=== PATIENT | male | born 1965 | race Caucasian/White ===

== ENCOUNTER 2016-05-17 19:53 | Emergency (ER) | payer OTHER ==
--- NOTE | 2016-05-17 22:17 | DIAGNOSTIC IMAGING REPORT ---
PROCEDURE: ABDOMEN/PELVIS WITH CONTRAST CLINICAL INDICATION: DIARRHEA TECHNIQUE: 140 ml of Isovue 300 were injected intravenously and axial images were obtained of the abdomen and pelvis with sagittal and coronal reformations. COMPARISON: None. FINDINGS: ABDOMEN: Mild circumferential mural thickening of the distal esophagus. Minor bibasilar atelectatic changes. Normal sized heart. No hiatal hernia. Tiny right lobe hepatic cyst. The liver, gallbladder, adrenal glands, kidneys, pancreas and spleen are otherwise normal. The abdominal aorta is normal in its course and caliber. There are no suspicious calcifications, retroperitoneal adenopathy or masses. The stomach, and mesentery are normal. Intact anterior abdominal wall. There are occasional normal-caliber bowel loops which are fluid-filled and contain air fluid levels. No dilated bowel loop or transition point. There is liquid stool in the proximal colon. In the distal descending colon, and throughout the sigmoid colon, there are numerous diverticula. There is a very mild amount of inflammation around the distal descending colon and proximal sigmoid. No free extraluminal gas, adjacent fluid, or focal fluid collection. PELVIS: The appendix is not visible. There are occasional fluid filled normal-caliber pelvic small bowel loops. The prostate gland, seminal vesicles, urinary bladder, and pelvic vessels are normal. No adenopathy, free fluid, or pelvic mass. Tiny in direct fat containing left inguinal hernia. Intact osseous structures. IMPRESSION: 1. Findings of very mild or early distal descending and sigmoid colon diverticulitis. No evidence of complication. 2. Scattered air fluid levels in normal small bowel suggestive of ileus or gastroenteritis. 3. Circumferential mural thickening of the distal esophagus may be reflux esophagitis. Correlate clinically. 4. Findings called to the emergency room. All CT scans at this facility use dose modulation, iterative reconstruction, and/or weight-based dosing when appropriate to reduce radiation dose to as low as reasonably achievable.
--- NOTE | 2016-05-17 23:08 | ED ORDER SUMMARY ---
..... Patient: JOVANA KISER [facility]Sheet [facility] VisitID: [id number] [address] [place] [address] 51y, M Registration Date/Time: 05/17/2016 ORDER SHEET Weight: 88.4 kg (stated) Allergies: Penicillins GENERAL ORDERS: Chest 2V Urgent (20:26 05/17/2016 JCoates) (Ack 20:29 AMcQuoid ER Tech1) (20:42 MCampbell) CT Abd/Pel w Cont (No) (N/A) Urgent (20:26 05/17/2016 JCoates) (Ack 20:29 AMcQuoid ER Tech1) (21:52 MCampbell) CBC w Diff Urgent (20:05/17/2016 JCoates) (Ack 20:29 AMcQuoid ER Tech1) (20:52 JBullard R.N.) CMP Urgent (20:05/17/2016 JCoates) (Ack 20:29 AMcQuoid ER Tech1) (20:52 JBullard R.N.) UA-Culture if indicated Urgent (20:05/17/2016 JCoates) (Ack 20:29 AMcQuoid ER Tech1) (22:36 JBullard R.N.) MEDICATION ORDERS: Ciprofloxacin PO 500 mg (NOW) (22:32 05/17/2016 JCoates) (23:07 JBullard R.N.) Flagyl PO 500 mg (NOW) (22:32 05/17/2016 JCoates) (23:07 JBullard R.N.) IV FLUIDS: IV NS : initial bolus 1000 mL (1000 mL/hr), then 1000 mL/hr for X1 (NOW) (20:26 05/17/2016 JCoates) (20:53 JBullard R.N.) Dilaudid IV 1 mg (NOW) (20:05/17/2016 JCoates) (20:52 JBullard R.N.) Zofran IV 8 mg (NOW) (20:27 05/17/2016 JCoates) (Cancelled: Physician Order20:32 JCoates) IV Saline Lock (20:05/17/2016 JCoates) (20:30 Martin Almaraz) Zofran IV 8 mg (NOW) (21:33 05/17/2016 JCoates) (21:34 Martin Almaraz) ORDER SHEET NOTES: [Electronically signed by Jian Juarez R.N. (23:31 05/17/2016)] [Electronically signed by José Luis Puentes (23:32 05/17/2016)] [Electronically locked/signed by Jian Juarez R.N. (23:31 05/17/2016)]
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
--- NOTE | 2016-05-17 23:08 | ED ORDER SUMMARY ---
..... Patient: JOVNAA KISER OrderSheet [facility] VisitID: [id number] [address] [place] [address] 51y, M Registration Date/Time: 05/17/2016 ORDER SHEET Weight: 88.4 kg (stated) Allergies: Penicillins GENERAL ORDERS: Chest 2V Urgent (20:26 05/17/2016 JCoates) (Ack 20:29 AMcQuoid ER Tech1) (20:42 MCampbell) CT Abd/Pel w Cont (No) (N/A) Urgent (20:26 05/17/2016 JCoates) (Ack 20:29 AMcQuoid ER Tech1) (21:52 MCampbell) CBC w Diff Urgent (20:05/17/2016 JCoates) (Ack 20:29 AMcQuoid ER Tech1) (20:52 JBullard R.N.) CMP Urgent (20:05/17/2016 JCoates) (Ack 20:29 AMcQuoid ER Tech1) (20:52 JBullard R.N.) UA-Culture if indicated Urgent (20:05/17/2016 JCoates) (Ack 20:29 AMcQuoid ER Tech1) (22:36 JBullard R.N.) MEDICATION ORDERS: Ciprofloxacin PO 500 mg (NOW) (22:32 05/17/2016 JCoates) (23:07 JBullard R.N.) Flagyl PO 500 mg (NOW) (22:32 05/17/2016 JCoates) (23:07 JBullard R.N.) IV FLUIDS: IV NS : initial bolus 1000 mL (1000 mL/hr), then 1000 mL/hr for X1 (NOW) (20:26 05/17/2016 JCoates) (20:53 JBullard R.N.) Dilaudid IV 1 mg (NOW) (20:05/17/2016 JCoates) (20:52 JBullard R.N.) Zofran IV 8 mg (NOW) (20:27 05/17/2016 JCoates) (Cancelled: Physician Order20:32 JCoates) IV Saline Lock (20:05/17/2016 JCoates) (20:30 Martin Almaraz) Zofran IV 8 mg (NOW) (21:33 05/17/2016 JCoates) (21:34 Martin Almaraz) ORDER SHEET NOTES: [Electronically signed by Jian Juarez R.N. (23:31 05/17/2016)] [Electronically signed by José Luis Puentes (23:32 05/17/2016)] [Electronically locked/signed by Jian Juarez R.N. (23:31 05/17/2016)]
--- NOTE | 2016-05-17 23:08 | ED CLINICAL REPORT ---
Clinical Report - Physicians/Mid Levels [facility] [address] [place] [address] 05/17/2016 19:54 [id number] Time Seen: 20:02 May 17 2016. Arrived- By private vehicle. Historian- patient. HISTORY OF PRESENT ILLNESS Chief Complaint: ABDOMINAL PAIN and DIARRHEA. This started about 4 days ago; One week ago patient developed a cough, runny nose, sore throat and body aches. He's been coughing consistently since. 4 days ago he also developed loose stools and has had watery diarrhea since. He denies any recent antibiotic use or exposure to other people with similar symptoms. No fever but has had body aches and mild chills. No pain with urination or increased urine frequency. At its maximum, severity described as mild. When seen in the E.D., severity described as mild. It is described as "pain" and cramping. No radiation. It is described as located in the right abdomen and right lower quadrant. No nausea or vomiting. He has had loss of appetite and diarrhea. No recent travel. Similar symptoms previously: None. Recent medical care: The patient was seen recently at another facility in a clinic (Patient Seen at an Urgent Care Earlier Today but They Were Unable to Do Lab Work.). REVIEW OF SYSTEMS No constipation, black stools, difficulty with urination, pain with urination or bloody stools. No fever, headache, chest pain, difficulty breathing or joint pain. No skin rash. Last bowel movement: recently. The patient has had chills, a cough and weight loss. All systems otherwise negative, except as recorded above. PAST HISTORY See nurses notes. No history of heart disease, lung disease or diabetes mellitus. SOCIAL HISTORY Never smoker. Alcohol use. No drug use. PHYSICAL EXAM Appearance: Alert. Oriented X3. No acute distress. Eyes: Pupils equal, round and reactive to light. Eyes normal inspection. ENT: Ears normal. Nose normal. Pharynx normal. Neck: Normal inspection. Neck supple. No JVD or lymphadenopathy. CVS: Normal heart rate and rhythm. Heart sounds normal. Respiratory: No respiratory distress. Breath sounds normal. Abdomen: Soft. Mild tenderness in the right upper quadrant. No guarding or rebound tenderness. No organomegaly. No mass. Back: Normal inspection. No CVA tenderness. Skin: Skin warm and dry. Normal skin color. No rash. Normal skin turgor. Extremities: Extremities exhibit normal ROM. No lower extremity edema. Neuro: Oriented X 3. No motor deficit. No sensory deficit. LABS, X-RAYS, AND EKG Chest X-ray: Normal Chest X-Ray. Abdominal CT: Normal liver, spleen and pancreas. Appendix normal. There is evidence of diverticulitis (likely early). No inflammatory phlegmon or focal abscess. Possible ileus. Mild thickening of the distal esophagus. Abdominal CT performed with IV contrast. The study was discussed with the radiologist. Laboratory Tests: UA-Culture if indicated: (SADA: 05/17/2016 22:30) ( [facility] 05/17/2016 22:52) Final results Test Result Flag Units (Reference) URINE COLOR YELLOW URINE APPEARANCE CLEAR URINE GLUCOSE NEGATIVE (NEGATIVE) URINE BILIRUBIN NEGATIVE (NEGATIVE) URINE KETONE 2+ (NEGATIVE) URINE SPECIFIC GRAVITY 1.010 (1.010-1.030) URINE PH 5.5 (5.0-8.0) URINE PROTEIN NEGATIVE (NEGATIVE) URINE UROBILINOGEN 0.2 EU/dL (0.2-1.0) URINE NITRITE NEGATIVE (NEGATIVE) URINE BLOOD NEGATIVE (NEGATIVE) URINE LEUK ESTERASE NEGATIVE (NEGATIVE) URINE RBC 0-1 rbc/hpf (0-1) URINE WBC 1-3 wbc/hpf (0-1) URINE EPITHELIAL CELLS 1-3 EPI/hpf (0-5) URINE BACTERIA NONE SEEN (NONE SEEN) URINE COMMENT CULT NOT INDICATED URINE CULTURES ARE SET-UP BASED ON THE FOLLOWING CRITERIA:POSITIVE NITRITEPOSITIVE LEUKOCYTE ESTERASEGREATER THAN 10 WHITE BLOOD CELLSMODERATE (2+) OR GREATER BACTERIA CBC w Diff: (SADA: 05/17/2016 20:50) ( [facility] 05/17/2016 20:59) Final results Test Result Flag Units (Reference) WHITE BLOOD COUNT 3.8 L K/uL (4.5-11.5) RED BLOOD COUNT 4.66 M/uL (4.50-5.90) HEMOGLOBIN 14.7 gm/dL (13.5-17.5) HEMATOCRIT 42.7 % (41.0-53.0) MEAN CELL VOLUME 92 fL (80-100) MEAN CORPUSCULAR HGB 32 pg (26-34) MEAN CORPUSCULAR HGB CONC 34 g/dL (31-37) RED CELL DISTRIBUTION WIDTH 12.4 % (11.6-14.8) PLATELET COUNT 173 K/uL (150-400) NEUTROPHIL % 58.8 % (50-75) LYMPH % 32.9 % (25-40) MONO % 7.8 % (3-14) EOSINOPHIL % 0.2 % (0-4) BASOPHIL % 0.3 % (0-2) CMP: (SADA: 05/17/2016 20:50) ( MsgRcvd 05/17/2016 21:29) Final results Test Result Flag Units (Reference) GLUCOSE 86 mg/dL (70-110) BUN 10 mg/dL (7-18) CREATININE 1.0 mg/dL (0.6-1.3) Estimated GFR >60 mL/min Estimated GFR- >60 mL/min Note: Persistent reduction over 3 months in eGFR<60 mL/min/1.73 m2 defines CKD. Patients with eGFR values>=60 mL/min/1.73 m2 may also have CKD if evidence ofpersistent proteinuria. Additional information may be foundat www.kidney.org. SODIUM 138 mmol/L (136-145) POTASSIUM 4.2 mmol/L (3.5-5.1) CHLORIDE 102 mmol/L (98-107) CARBON DIOXIDE 27 mmol/L (21-32) CALCIUM 7.7 L mg/dL (8.5-10.1) TOTAL PROTEIN 6.7 g/dL (6.4-8.2) ALBUMIN 3.5 g/dL (3.3-5.0) BILIRUBIN, TOTAL 0.4 mg/dL (0.0-1.0) ALKALINE PHOSPHATASE 46 U/L (46-116) AST (SGOT) 26 U/L (15-37) ALT (SGPT) 25 U/L (12-78) . PROGRESS AND PROCEDURES Course of Care: 20:27 05/17/16. Patient stable. Cough and now diarrhea. he has mild abdominal pain, unfortunately it's in the right lower quadrant at McBurney's point. Discussed waiting for labs versus CT now. Patient would like to get the CT now so that there is no delay in treatment if CBC is elevated. We'll Order this and make him comfortable. Disposition: Discharged in good and improved condition. CLINICAL IMPRESSION Acute diverticulitis (early). Acute upper respiratory infection. INSTRUCTIONS Rest at home for two days until better. Drink plenty of fluids. No dietary restrictions. No alcohol until released (while taking antibiotics). Warnings: Further evaluation is necessary. It is very important to follow up with a physician. SEDATIVE MEDICATION: You were given sedative medication during your visit. Do not drive or operate dangerous machinery today. GENERAL WARNINGS: Return or contact your physician immediately if your condition worsens or changes unexpectedly, if not improving as expected, or if other problems arise. SPECIFICALLY, return if you develop fever, vomiting, the inability to keep fluids down or fainting. Prescription Medications: Dickson 5 mg / 325 mg tablets: take 1 to 2 orally every 6 hours as needed for pain. Dispense five (5). No refill. Substitution is permissible. Cipro 500 mg: take 1 tab orally every 12 hours for 7 days. No refills. Substitution is permissible. Flagyl 500 mg: Take 1 tablet orally every 12 hours for 7 days. No refill. Substitution is permissible OTC Medications: Mucinex (available over the counter): 600 mg tablet: take 1 tablet orally every 12 hours for 5 days. Dispense ten (10). No refill. Follow-up: Follow up with your doctor in three days even if well. Understanding of the discharge instructions verbalized by patient. (Electronically signed by José Luis Puentes, 05/17/2016 23:32)
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
--- NOTE | 2016-05-17 23:32 | ED MAR SUMMARY ---
..... Medication Administration Record [facility] [address] [place] [address] Patient: JOVANA KISER Visit ID: [id number] 51y, M Weight: 88.4 kg Height/Length: 75 in BMI: 24.4 ALLERGIES: Penicillins Given 20:52 05/17/2016 Jian Juarez R.N. Medication Administered: DILAUDID [IVP] (HYDROMORPHONE HCL PF), Dose: 1 mg IVP, Site: #1 left forearm. Medication Ordered: Dilaudid IV 1 mg (NOW). Start 20:53 05/17/2016 Jian Juarez R.N. Medication Administered: IV NS (SALINE), Dose: IV Fluids, Bolus: 1000 mL wide open, Dispensed: 1000 mL bag, Site: #1 left forearm. Medication Ordered: IV NS : initial bolus 1000 mL (1000 mL/hr), then 1000 mL/hr for X1 (NOW). Given 21:34 05/17/2016 Jian Juarez R.N. Medication Administered: ZOFRAN [IVP] (ONDANSETRON HCL), Dose: 8 mg IVP, Site: #1 left forearm. Medication Ordered: Zofran IV 8 mg (NOW). Given 23:07 05/17/2016 Jian Juarez R.N. Medication Administered: CIPROFLOXACIN [PO] (CIPROFLOXACIN), Dose: 500 mg PO. Medication Ordered: Ciprofloxacin PO 500 mg (NOW). Given 23:05/17/2016 Jian Juarez R.N. Medication Administered: FLAGYL [PO] (METRONIDAZOLE), Dose: 500 mg PO. Medication Ordered: Flagyl PO 500 mg (NOW).
--- NOTE | 2016-05-17 23:32 | ED MED RECONCILIATION SUMMARY ---
Patient: JOVANA KISER Medication Reconciliation Report [facility] VisitID: [id number] [address] [place] [address] 51y, M Registration Date/Time: 05/17/2016 Weight: 88.4 kg Height/Length: 75 in. BMI: 24.4 ALLERGIES: Penicillins The patient's Home Medications are listed below: THE FOLLOWING MEDICATIONS NEED TO BE RECONCILED: Lisinopril Oral The source(s) of the original Home Medication information: Not obtained. The following Medications were given to the patient in the Emergency Department: Dilaudid [IVP] IVP 1 mg, administered: 05/17/2016 8:52:00 PM IV NS IV Fluids bolus 1000 mL wide open, administered: 05/17/2016 8:53:00 PM Zofran [IVP] IVP 8 mg, administered: 05/17/2016 9:34:00 PM Flagyl [PO] PO 500 mg, administered: 05/17/2016 11:07:00 PM Ciprofloxacin [PO] PO 500 mg, administered: 05/17/2016 11:07:00 PM The following Medications were prescribed to the patient: [place] 5 mg / 325 mg tablets: take 1 to 2 orally every 6 hours as needed for pain. Dispense five (5). No refill. Substitution is permissible. -- José Luis Puentes Mucinex (available over the counter): 600 mg tablet: take 1 tablet orally every 12 hours for 5 days. Dispense ten (10). No refill. -- José Luis Puentes Cipro 500 mg: take 1 tab orally every 12 hours for 7 days. No refills. Substitution is permissible. -- José Luis Puentes Flagyl 500 mg: Take 1 tablet orally every 12 hours for 7 days. No refill. Substitution is permissible -- José Luis Puentes
--- NOTE | 2016-05-17 23:32 | ED MAR SUMMARY ---
..... Medication Administration Record [facility] [address] [place] [address] Patient: JOVANA KISER Visit ID: [id number] 51y, M Weight: 88.4 kg Height/Length: 75 in BMI: 24.4 ALLERGIES: Penicillins Given 20:52 05/17/2016 Jian Juarez R.N. Medication Administered: DILAUDID [IVP] (HYDROMORPHONE HCL PF), Dose: 1 mg IVP, Site: #1 left forearm. Medication Ordered: Dilaudid IV 1 mg (NOW). Start 20:53 05/17/2016 Jian Juarez R.N. Medication Administered: IV NS (SALINE), Dose: IV Fluids, Bolus: 1000 mL wide open, Dispensed: 1000 mL bag, Site: #1 left forearm. Medication Ordered: IV NS : initial bolus 1000 mL (1000 mL/hr), then 1000 mL/hr for X1 (NOW). Given 21:34 05/17/2016 Jian Juarez R.N. Medication Administered: ZOFRAN [IVP] (ONDANSETRON HCL), Dose: 8 mg IVP, Site: #1 left forearm. Medication Ordered: Zofran IV 8 mg (NOW). Given 23:07 05/17/2016 Jian Juarez R.N. Medication Administered: CIPROFLOXACIN [PO] (CIPROFLOXACIN), Dose: 500 mg PO. Medication Ordered: Ciprofloxacin PO 500 mg (NOW). Given 23:05/17/2016 Jian Juarez R.N. Medication Administered: FLAGYL [PO] (METRONIDAZOLE), Dose: 500 mg PO. Medication Ordered: Flagyl PO 500 mg (NOW).
--- NOTE | 2016-05-17 23:32 | ED MED RECONCILIATION SUMMARY ---
Patient: JOVANA KISER Medication Reconciliation Report [facility] VisitID: [id number] [address] [place] [address] 51y, M Registration Date/Time: 05/17/2016 Weight: 88.4 kg Height/Length: 75 in. BMI: 24.4 ALLERGIES: Penicillins The patient's Home Medications are listed below: THE FOLLOWING MEDICATIONS NEED TO BE RECONCILED: Lisinopril Oral The source(s) of the original Home Medication information: Not obtained. The following Medications were given to the patient in the Emergency Department: Dilaudid [IVP] IVP 1 mg, administered: 05/17/2016 8:52:00 PM IV NS IV Fluids bolus 1000 mL wide open, administered: 05/17/2016 8:53:00 PM Zofran [IVP] IVP 8 mg, administered: 05/17/2016 9:34:00 PM Flagyl [PO] PO 500 mg, administered: 05/17/2016 11:07:00 PM Ciprofloxacin [PO] PO 500 mg, administered: 05/17/2016 11:07:00 PM The following Medications were prescribed to the patient: [place] 5 mg / 325 mg tablets: take 1 to 2 orally every 6 hours as needed for pain. Dispense five (5). No refill. Substitution is permissible. -- José Luis Puentes Mucinex (available over the counter): 600 mg tablet: take 1 tablet orally every 12 hours for 5 days. Dispense ten (10). No refill. -- José Luis Puentes Cipro 500 mg: take 1 tab orally every 12 hours for 7 days. No refills. Substitution is permissible. -- José Luis Puentes Flagyl 500 mg: Take 1 tablet orally every 12 hours for 7 days. No refill. Substitution is permissible -- José Luis Puentes
--- NOTE | 2016-05-17 23:32 | ED DISCHARGE INSTRUCTIONS ---
Patient: JOVANA KISER General Instructions [facility] VisitID: [id number] [place] [address] 51y, M Registration Date/Time: 05/17/2016 Acute diverticulitis (early). Acute upper respiratory infection. INSTRUCTIONS Rest at home for two days until better. Drink plenty of fluids. No dietary restrictions. No alcohol until released (while taking antibiotics). Warnings: Further evaluation is necessary. It is very important to follow up with a physician. SEDATIVE MEDICATION: You were given sedative medication during your visit. Do not drive or operate dangerous machinery today. GENERAL WARNINGS: Return or contact your physician immediately if your condition worsens or changes unexpectedly, if not improving as expected, or if other problems arise. SPECIFICALLY, return if you develop fever, vomiting, the inability to keep fluids down or fainting. Prescription Medications: [place] 5 mg / 325 mg tablets: take 1 to 2 orally every 6 hours as needed for pain. Dispense five (5). No refill. Substitution is permissible. Cipro 500 mg: take 1 tab orally every 12 hours for 7 days. No refills. Substitution is permissible. Flagyl 500 mg: Take 1 tablet orally every 12 hours for 7 days. No refill. Substitution is permissible OTC Medications: Mucinex (available over the counter): 600 mg tablet: take 1 tablet orally every 12 hours for 5 days. Dispense ten (10). No refill. Follow-up: Follow up with your doctor in three days even if well. Understanding of the discharge instructions verbalized by patient. ADDITIONAL INFORMATION Diverticulitis Some people develop pouches along the wall of the colon as they get older. The pouches,called diverticuli, usually cause no symptoms. If the pouches become blocked, an infection may occur known as diverticulitis. This causes lower abdominal pain and fever. If not treated, it can become a serious condition, causing an abscess to form inside the pouch. The abscess may block the instestinal tract even or rupture, spreading infection throughout the abdomen. When treatment is started early, oral antibiotics alone may be enough to cure diverticulitis. This method is tried first. However, if you do not improve or if your condition worsens while you are trying oral antibiotics, it will be necessary to admit you to the hospital for IV antibiotics. Severe cases may require surgery. Home care The following guidelines will help you care for your diverticulitis at home: During the acute illness, rest and follow a low-fiber diet: Foods to Include: flake cereal, mashed potatoes, pancakes, waffles, pasta, white bread, rice, applesauce, bananas, eggs, meat, fish, poultry, tofu, cooked vegetables. Take antibiotics exactly as directed. Do not miss any doses or stop taking the medication, even if you feel better. Monitor your temperature and report any rising temperature to your doctor. Preventing future attacks Once you have had an episode of diverticulitis, you are at risk of having a recurrence. After you have recovered from this episode, you may be able to reduce your risk by eating a high-fiber diet (2035 gm/day of fiber). This cleans out the colon pouches that already exist and prevent new ones from forming. Foods high in fiber includes fresh fruits and edible peelings, raw or lightly cooked vegetables, whole grain cereals and breads, dried beans and peas, bran. Follow-up care Follow up with your doctor as advised or sooner if you are not improving in the nexttwo days. When to seek medical care Get prompt medical attention if any of the following occur: Fever of 100.4F (38C) or higher, or as directed by your health care provider Repeated vomiting or swelling of the abdomen Weakness, dizziness, light-headedness Increasing abdominal pain that becomes severe or spreads to your back Pain that moves to the right lower abdomen Rectal bleeding (red, black or maroon color of the stools) Unexpected vaginal bleeding Viral Respiratory Illness [Adult] You have an Upper Respiratory Illness (URI) caused by a virus. This illness is contagious during the first few days. It is spread through the air by coughing and sneezing or by direct contact (touching the sick person and then touching your own eyes, nose or mouth). Most viral illnesses go away within 7-10 days with rest and simple home remedies. Sometimes, the illness may last for several weeks. Antibiotics will not kill a virus and are generally not prescribed for this condition. Home Care: 1) If symptoms are severe, rest at home for the first 2-3 days. When you resume activity, don't let yourself get too tired. 2) Avoid being exposed to cigarette smoke (yours or others). 3) Tylenol (acetaminophen) or ibuprofen (Advil, Motrin) will help fever, muscle aching and headache. (Persons under 18 with fever should not take aspirin since this may cause liver damage.) 4) Your appetite may be poor, so a light diet is fine. Avoid dehydration by drinking 6-8 glasses of fluids per day (water, soft drinks, juices, tea, soup). Extra fluids will help loosen secretions in the nose and lungs. 5) [id number] cold medicines will not shorten the length of time youre sick, but they may be helpful for the following symptoms: cough (Robitussin DM); sore throat (Chloraseptic lozenges or spray); nasal and sinus congestion (Actifed, Sudafed, Chlortrimeton). Follow Up with your doctor or as advised if you dont improve over the next week. Get Prompt Medical Attention if any of the following occur: -- Cough with lots of colored sputum (mucus) or blood in your sputum -- Chest pain, shortness of breath, wheezing or have trouble breathing -- Severe headache; face, neck or ear pain -- Fever over 100.4 F (38.0 C) for more than three days -- You cant swallow due to throat pain Hydrocodone Bitartrate, Acetaminophen Oral tablet What is this medicine? ACETAMINOPHEN; HYDROCODONE (a set a HAIM murphy fen; td droe KOE done) is a pain reliever. It is used to treat mild to moderate pain. How should I use this medicine? Take this medicine by mouth. Swallow it with a full glass of water. Follow the directions on the prescription label. If the medicine upsets your stomach, take the medicine with food or milk. Do not take more than you are told to take. Talk to your gate watchman regarding the use of this medicine in children. This medicine is not approved for use in children. What side effects may I notice from receiving this medicine? Side effects that you should report to your doctor or health manager critical care unit as soon as possible: allergic reactions like skin rash, itching or hives, swelling of the face, lips, or tongue breathing problems confusion feeling faint or lightheaded, falls stomach pain yellowing of the eyes or skin Side effects that usually do not require medical attention (report to your doctor or health manager critical care unit if they continue or are bothersome): nausea, vomiting stomach upset What may interact with this medicine? alcohol antihistamines isoniazid medicines for depression, anxiety, or psychotic disturbances medicines for sleep muscle relaxants naltrexone narcotic medicines (opiates) for pain phenobarbital ritonavir tramadol What if I miss a dose? If you miss a dose, take it as soon as you can. If it is almost time for your next dose, take only that dose. Do not take double or extra doses. Where should I keep my medicine? Keep out of the reach of children. This medicine can be abused. Keep your medicine in a safe place to protect it from theft. Do not share this medicine with anyone. Selling or giving away this medicine is dangerous and against the law. Store at room temperature between 15 and 30 degrees C (59 and 86 degrees F). Protect from light. Keep container tightly closed. Throw away any unused medicine after the expiration date. Discard unused medicine and used packaging carefully. Pets and children can be harmed if they find used or lost packages. What should I tell my health care provider before I take this medicine? They need to know if you have any of these conditions: brain tumor Crohn's disease, inflammatory bowel disease, or ulcerative colitis drink more than 3 alcohol-containing drinks per day drug abuse or addiction head injury heart or circulation problems kidney disease or problems going to the bathroom liver disease lung disease, asthma, or breathing problems an unusual or allergic reaction to acetaminophen, hydrocodone, other opioid analgesics, other medicines, foods, dyes, or preservatives or trying to get breast-feeding What should I watch for while using this medicine? Tell your doctor or health manager critical care unit if your pain does not go away, if it gets worse, or if you have new or a different type of pain. You may develop tolerance to the medicine. Tolerance means that you will need a higher dose of the medicine for pain relief. Tolerance is normal and is expected if you take the medicine for a long time. Do not suddenly stop taking your medicine because you may develop a severe reaction. Your body becomes used to the medicine. This does NOT mean you are addicted. Addiction is a behavior related to getting and using a drug for a non-medical reason. If you have pain, you have a medical reason to take pain medicine. Your doctor will tell you how much medicine to take. If your doctor wants you to stop the medicine, the dose will be slowly lowered over time to avoid any side effects. You may get drowsy or dizzy when you first start taking the medicine or change doses. Do not drive, use machinery, or do anything that may be dangerous until you know how the medicine affects you. Stand or sit up slowly. There are different types of narcotic medicines (opiates) for pain. If you take more than one type at the same time, you may have more side effects. Give your health care provider a list of all medicines you use. Your doctor will tell you how much medicine to take. Do not take more medicine than directed. Call emergency for help if you have problems breathing. The medicine will cause constipation. Try to have a bowel movement at least every 2 to 3 days. If you do not have a bowel movement for 3 days, call your doctor or health manager critical care unit. Too much acetaminophen can be very dangerous. Do not take Tylenol (acetaminophen) or medicines that contain acetaminophen with this medicine. Many non-prescription medicines contain acetaminophen. Always read the labels carefully. Ciprofloxacin Hydrochloride Oral tablet What is this medicine? CIPROFLOXACIN (sip yennifer FLOX a sin) is a quinolone antibiotic. It is used to treat certain kinds of bacterial infections. It will not work for colds, flu, or other viral infections. How should I use this medicine? Take this medicine by mouth with a glass of water. Follow the directions on the prescription label. Take your medicine at regular intervals. Do not take your medicine more often than directed. Take all of your medicine as directed even if you think your are better. Do not skip doses or stop your medicine early. You can take this medicine with food or on an empty stomach. It can be taken with a meal that contains dairy or calcium, but do not take it alone with a dairy product, like milk or yogurt or calcium-fortified juice. A special MedGuide will be given to you by the pharmacist with each prescription and refill. Be sure to read this information carefully each time. Talk to your gate watchman regarding the use of this medicine in children. Special care may be needed. What side effects may I notice from receiving this medicine? Side effects that you should report to your doctor or health manager critical care unit as soon as possible: - allergic reactions like skin rash, itching or hives, swelling of the face, lips, or tongue - breathing problems - confusion, nightmares or hallucinations - feeling faint or lightheaded, falls - irregular heartbeat - joint, muscle or tendon pain or swelling - pain or trouble passing urine -persistent headache with or without blurred vision - redness, blistering, peeling or loosening of the skin, including inside the mouth - seizure - unusual pain, numbness, tingling, or weakness Side effects that usually do not require medical attention (report to your doctor or health manager critical care unit if they continue or are bothersome): - diarrhea - nausea or stomach upset - white patches or sores in the mouth What may interact with this medicine? Do not take this medicine with any of the following medications: cisapride droperidol terfenadine tizanidine This medicine may also interact with the following medications: antacids caffeine cyclosporin didanosine (ddI) buffered tablets or powder medicines for diabetes medicines for inflammation like ibuprofen, naproxen methotrexate multivitamins omeprazole phenytoin probenecid sucralfate theophylline warfarin What if I miss a dose? If you miss a dose, take it as soon as you can. If it is almost time for your next dose, take only that dose. Do not take double or extra doses. Where should I keep my medicine? Keep out of the reach of children. Store at room temperature below 30 degrees C (86 degrees F). Keep container tightly closed. Throw away any unused medicine after the expiration date. What should I tell my health care provider before I take this medicine? They need to know if you have any of these conditions: -bone problems -cerebral disease -joint problems -irregular heartbeat -kidney disease -liver disease -myasthenia gravis -seizure disorder -tendon problems -an unusual or allergic reaction to ciprofloxacin, other antibiotics or medicines, foods, dyes, or preservatives - or trying to get -breast-feeding What should I watch for while using this medicine? Tell your doctor or health manager critical care unit if your symptoms do not improve. Do not treat diarrhea with over the counter products. Contact your doctor if you have diarrhea that lasts more than 2 days or if it is severe and watery. You may get drowsy or dizzy. Do not drive, use machinery, or do anything that needs mental alertness until you know how this medicine affects you. Do not stand or sit up quickly, especially if you are an older patient. This reduces the risk of dizzy or fainting spells. This medicine can make you more sensitive to the sun. Keep out of the sun. If you cannot avoid being in the sun, wear protective clothing and use sunscreen. Do not use sun lamps or tanning beds/booths. Avoid antacids, aluminum, calcium, iron, magnesium, and zinc products for 6 hours before and 2 hours after taking a dose of this medicine. Metronidazole Oral tablet What is this medicine? METRONIDAZOLE (me troe NI da zole) is an antiinfective. It is used to treat certain kinds of bacterial and protozoal infections. It will not work for colds, flu, or other viral infections. How should I use this medicine? Take this medicine by mouth with a full glass of water. Follow the directions on the prescription label. Take your medicine at regular intervals. Do not take your medicine more often than directed. Take all of your medicine as directed even if you think you are better. Do not skip doses or stop your medicine early. Talk to your gate watchman regarding the use of this medicine in children. Special care may be needed. What side effects may I notice from receiving this medicine? Side effects that you should report to your doctor or health manager critical care unit as soon as possible: allergic reactions like skin rash or hives, swelling of the face, lips, or tongue confusion, clumsiness difficulty speaking discolored or sore mouth dizziness fever, infection numbness, tingling, pain or weakness in the hands or feet trouble passing urine or change in the amount of urine redness, blistering, peeling or loosening of the skin, including inside the mouth seizures unusually weak or tired vaginal irritation, dryness, or discharge Side effects that usually do not require medical attention (report to your doctor or health manager critical care unit if they continue or are bothersome): diarrhea headache irritability metallic taste nausea stomach pain or cramps trouble sleeping What may interact with this medicine? Do not take this medicine with any of the following medications: alcohol or any product that contains alcohol amprenavir oral solution cisapride disulfiram dofetilide dronedarone paclitaxel injection pimozide ritonavir oral solution sertraline oral solution sulfamethoxazole-trimethoprim injection thioridazine ziprasidone This medicine may also interact with the following medications: cimetidine lithium other medicines that prolong the QT interval (cause an abnormal heart rhythm) phenobarbital phenytoin warfarin What if I miss a dose? If you miss a dose, take it as soon as you can. If it is almost time for your next dose, take only that dose. Do not take double or extra doses. Where should I keep my medicine? Keep out of the reach of children. Store at room temperature below 25 degrees C (77 degrees F). Protect from light. Keep container tightly closed. Throw away any unused medicine after the expiration date. What should I tell my health care provider before I take this medicine? They need to know if you have any of these conditions: anemia or other blood disorders disease of the nervous system fungal or yeast infection if you drink alcohol containing drinks liver disease seizures an unusual or allergic reaction to metronidazole, or other medicines, foods, dyes, or preservatives or trying to get breast-feeding What should I watch for while using this medicine? Tell your doctor or health manager critical care unit if your symptoms do not improve or if they get worse. You may get drowsy or dizzy. Do not drive, use machinery, or do anything that needs mental alertness until you know how this medicine affects you. Do not stand or sit up quickly, especially if you are an older patient. This reduces the risk of dizzy or fainting spells. Avoid alcoholic drinks while you are taking this medicine and for three days afterward. Alcohol may make you feel dizzy, sick, or flushed. If you are being treated for a sexually transmitted disease, avoid sexual contact until you have finished your treatment. Your sexual partner may also need treatment. Guaifenesin Oral syrup What is this medicine? GUAIFENESIN (gwye FEN e sin) is an expectorant. It helps to thin mucous and make coughs more productive. This medicine is used to treat coughs caused by colds or the flu. It is not intended to treat chronic cough caused by smoking, asthma, emphysema, or heart failure. How should I use this medicine? Take this medicine by mouth. Follow the directions on the prescription label. Use a specially marked spoon or container to measure your dose. Household spoons are not accurate. Take your medicine at regular intervals. Do not take it more often than directed. Talk to your gate watchman regarding the use of this medicine in children. Special care may be needed. What side effects may I notice from receiving this medicine? Side effects that you should report to your doctor or health manager critical care unit as soon as possible: allergic reactions like skin rash, itching or hives, swelling of the face, lips, or tongue Side effects that usually do not require medical attention (report to your doctor or health manager critical care unit if they continue or are bothersome): dizziness headache stomach upset What may interact with this medicine? Interactions are not expected. What if I miss a dose? If you miss a dose, take it as soon as you can. If it is almost time for your next dose, take only that dose. Do not take double or extra doses. Where should I keep my medicine? Keep out of the reach of children. Store at room temperature between 20 and 25 degrees C (68 and 77 degrees F). Do not freeze. Keep container tightly closed. Throw away any unused medicine after the expiration date. What should I tell my health care provider before I take this medicine? They need to know if you have any of these conditions: diabetes fever kidney disease an unusual or allergic reaction to guaifenesin, other medicines, foods, dyes, or preservatives or trying to get breast-feeding What should I watch for while using this medicine? Do not treat a cough for more than 1 week without consulting your doctor or health manager critical care unit. If you also have a high fever, skin rash, continuing headache, or sore throat, see your doctor. For best results, drink 6 to 8 glasses water daily while you are taking this medicine. You have been given the following additional information: Diverticulitis Uri, Viral, No Abx (Adult) Hydrocodone Bitartrate, Acetaminophen Oral tablet Ciprofloxacin Hydrochloride Oral tablet Metronidazole Oral tablet Guaifenesin Oral syrup Rest at home for two days until better. (Electronically signed by José Luis Puentes, 05/17/2016 23:32)
--- NOTE | 2016-05-18 05:57 | DIAGNOSTIC IMAGING REPORT ---
PROCEDURE: XR CHEST 2 VIEW INDICATION: COUGH TECHNIQUE: Two views. COMPARISON: 08/10/2012 FINDINGS: The cardiomediastinal contour is stable, within normal limits. The central vasculature is not congested. The lungs are clear without focal consolidation, pleural effusion or pneumothorax. The visualized osseous structures are intact. IMPRESSION: 1. No evidence of acute cardiopulmonary disease. 2. Stable exam compared to prior study.
== END 2016-05-17 23:29 | disposition home or self-care (01) ==
LOC: ED SRH 19:53
DX: K57.92 Diverticulitis of intestine, part unspecified, without perforation or abscess without bleeding (principal); J06.9 Acute upper respiratory infection, unspecified; I10 Essential (primary) hypertension; Z88.0 Allergy status to penicillin
CPT/HCPCS: 90004; 90100; 95059